=== PATIENT | male | born 1970 | race Caucasian/White ===

== ENCOUNTER 2016-07-04 21:47 | Emergency (ER) | payer BC ==
[~2016-07-04] VITALS: Ht 172.7 cm; Wt 102.1 kg
[2016-07-04] MEDS ORDERED: PRED50TA PO (22:48)
[2016-07-04] MEDS ORDERED: SULF1TAB24 PO (22:48)
--- NOTE | 2016-07-04 22:48 | PHYS DOC ---
Adult General Chief Complaint Chief Complaint: MULTIPLE COMPLAINTS HPI HPI This is a 46 old male with history of gout having gout-like symptoms for the last 2 weeks in his left wrist and left elbow despite taking indomethacin. She is not taking any gout preventative medications. He also reports chronic pain in his low back and hip. He complains of a lower gluteal cleft abscess that openly drained tonight prior to arrival. He denies any fever or chills. He denies any history of diabetes. He does state he has history of hypertension and is compliant with his medications. Patient does take amlodipine and lisinopril. Eyes any fever or chills. Denies any abdominal pain. He rates his pain a 6/10 on the pain scale. Review of Systems Review of Systems Constitutional: Denies fever or chills [] Eyes: Denies change in visual acuity, redness, or eye pain [] HENT: Denies nasal congestion or sore throat [] Respiratory: Denies cough or shortness of breath [] Cardiovascular: No additional information not addressed in HPI [] GI: Denies abdominal pain, nausea, vomiting, bloody stools or diarrhea [] : Denies dysuria or hematuria [] Musculoskeletal: Denies back pain, has joint pain [] Integument: Denies rash or skin lesions [] Neurologic: Denies headache, focal weakness or sensory changes [] Endocrine: Denies polyuria or polydipsia [] Current Medications Current Medications Current Medications Medications (Trade) Dose Ordered Sig/[facility] Start Time Stop Time Status Last Admin Dose Admin Prednisone (Prednisone) 60 mg 1X ONCE 07/04/16 23:00 07/04/16 23:01 Allergies Allergies Allergies Coded Allergies Type Severity Reaction Last Updated Verified No Known Drug Allergies 07/04/16 No Physical Exam Physical Exam Constitutional: Well developed, well nourished, no acute distress, non-toxic appearance. [] HENT: Normocephalic, atraumatic, bilateral external ears normal, oropharynx moist, no oral exudates, nose normal. [] Eyes: PERRLA, EOMI, conjunctiva normal, no discharge. [] Neck: Normal range of motion, no tenderness, supple, no stridor. [] Cardiovascular:Heart rate regular rhythm, no murmur [] Lungs & Thorax: Bilateral breath sounds clear to auscultation [] Abdomen: Bowel sounds normal, soft, no tenderness, no masses, no pulsatile masses. [] Skin: Warm, dry, no erythema, no rash, small focal abscess that is open and draining with minimal fluctuance seen, mild serosanginous fluid was expressed. [ ] Back: No tenderness, no CVA tenderness. [] Extremities: No tenderness, no cyanosis, no clubbing, ROM intact, no edema. [] Neurologic: Alert and oriented X 3, normal motor function, normal sensory function, no focal deficits noted. [] Psychologic: Affect normal, judgement normal, mood normal. [] EKG EKG [] Radiology/Procedures Radiology/Procedures [] Course & Med Decision Making Course & Med Decision Making Pertinent Labs and Imaging studies reviewed. (See chart for details) This 46 old male who's having an acute gout flare will be given a prednisone course as he is failing indomethacin. I counseled the length that he is in need of being on gout maintenance therapy. I instructed him follow closely in the next several days with primary care doctor to be put on gout maintenance therapy such as allopurinol. I'll also prescribe a course of Bactrim for his open draining abscess with strict instruction to have it rechecked in the next several days and to return if he notices any worsening swelling or pain to that area. There is no indication at this time to perform any laboratory workup. He was given a dose of prednisone in the department and discharged without incident. Dragon Disclaimer Dragon Disclaimer This electronic medical record was generated, in whole or in part, using a voice recognition dictation system. Departure Departure Impression: Primary Impression: Gout attack Additional Impression: Abscess Disposition: 01 HOME, SELF-CARE Admitting Physician: Other Condition: STABLE Patient Instructions: Abscess, [id number] Additional Instructions: Please take your antibiotic and steroid as prescribed and follow up with your primary care doctor in the next 2-3 days to have your abscess rechecked. Discuss with your doctor the need to be placed on allopurinol for gout maintenance. Return to the ER if you develop any worsening pain or fever or if your abscess should increase in size despite taking antibiotics. Scripts Sulfamethoxazole/Trimethoprim (Bactrim Ds Tablet)1 Each Tablet1 Tab PO BID #20 TAB Prov:BANDAR HARVEY DO 07/04/16 Prednisone 50 Mg Tablet1 Tab PO DAILY #5 TAB Prov:BANDAR HARVEY DO 07/04/16 Problem Qualifiers BANDAR HARVEY DO Jul 04, 2016 22:48
[2016-07-04] MEDS ORDERED: PREDNISONE 20 MG TABLET PO ONE (23:00)
[2016-07-04 23:06] VITALS: BP 130/69
== END 2016-07-04 23:08 | disposition home or self-care (01) ==
LOC: ER 21:47
DX: M10.9 Gout, unspecified (principal); L02.31 Cutaneous abscess of buttock; I10 Essential (primary) hypertension
CPT/HCPCS: 99283; J7512

== ENCOUNTER 2017-10-16 03:45 | Emergency (ER) | payer BC ==
[2017-10-16] MEDS ORDERED: cloNIDine HCL 0.1 MG TABLET PO (04:15)
[2017-10-16] MEDS ORDERED: amLODIPine BESYLATE 5 MG TABLET PO (04:15)
[2017-10-16] MEDS: cloNIDine HCL 0.1 MG TABLET PO (05:04)
== END 2017-10-16 05:17 | disposition home or self-care (01) ==
LOC: ER 05:17
DX: I10 Essential (primary) hypertension (principal); R06.09 Other forms of dyspnea; F41.9 Anxiety disorder, unspecified; G89.29 Other chronic pain
CPT/HCPCS: 99283

== ENCOUNTER 2018-09-02 23:20 | Emergency (ER) | payer BC ==
[~2018-09-02] VITALS: Ht 172.7 cm; Wt 97.5 kg
[~2018-09-02 23:20] MED LIST: AMLO10TA8 PO; PRED50TA PO; SULF1TAB24 PO
[2018-09-03 00:08] VITALS: BP 152/72
[2018-09-03] MEDS ORDERED: PRED-220 PO (00:31)
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
[2018-09-03] MEDS ORDERED: KETOROLAC 30 MG/ML VIAL. IM ONE (00:45)
== END 2018-09-03 01:03 | disposition home or self-care (01) ==
LOC: ER 23:20
DX: M54.5 Low back pain (principal); F41.9 Anxiety disorder, unspecified; I10 Essential (primary) hypertension; F17.200 Nicotine dependence, unspecified, uncomplicated; Z93.3 Colostomy status
CPT/HCPCS: 96372; 99283; J1885